=== PATIENT | female | born 1945 | race Caucasian/White ===

== ENCOUNTER 2016-10-24 13:59 | Observation (INO) ==
--- NOTE | 2016-10-24 17:25 | Emergency Department Note ---
Disposition Clinical Impression: Transient cerebral ischemia Disposition: Admitted As Inpatient Referrals: Vickey Goodman Jr, MD [Primary Care Provider] - Forms: ED Satisfaction Letter General Adult HPI - General Chief complaint: ED Dizziness Stated complaint: Dizzy/numbness/nausea Time Seen by Provider: 10/24/16 17:24 Source: patient Limitations: no limitations - History of Present Illness HPI Narrative: 71-year-old female reports to the emergency department with family members. There is concern for recurrent arm numbness or weakness. She also had dysarthria on Sunday. The patient has no history of CVA. She has had a history of hypertension. The patient denies any syncope or fall. There is no history of confusion. She has been somewhat anxious. There is no history of depression or suicidality or homicidality. The patient denies any fevers chest pain shortness of breath or cough no abdominal pain vomiting or diarrhea and no back pain or headache. No neck stiffness rash or fever. There is no history of leg swelling or pain, no coughing up blood. No bleeding, the patient has no history of anticoagulation therapy. The patient usually takes care of herself and lives alone, she is here with 2 younger relatives who are concerned about a possible stroke. Per reports they called their primary care physician's office and they were concerned as well so they had the patient come to the ED. The patient denies any weakness or numbness in the arms or legs at this time. There is no history of karen dysarthria or confusion. The patient also describes some dizziness and nausea. She does not describe head motion related symptomatology. No history of bowel or bladder problems or back pain. There is no history of aneurysm or coronary disease dysrhythmia PE DVT or cancer. Pain Scale: 0 - Related Data Home Medications Medication Instructions Recorded Confirmed Ascorbate Calcium [Vitamin C] 500 mg PO DAILY 10/24/16 10/24/16 Calcium Carbonate [Calcium] 500 mg PO DAILY 10/24/16 10/24/16 Glucosamn/[place]n/C/Mn/[place] 1 tab PO DAILY 10/24/16 10/24/16 [Cvs Glucosamine Chondroitin Tb] [place] [[place] Little] 500 mg PO DAILY 10/24/16 10/24/16 Multivitamin [Multi-Day Vitamins] 1 tab PO DAILY 10/24/16 10/24/16 Vit C/E/Zn/Coppr/Lutein/Zeaxan 1 cap PO DAILY 10/24/16 10/24/16 [Preservision Areds 2 Softgel] Allergies Allergy/AdvReac Type Severity Reaction Status Date / Time No Known Allergies Allergy Verified 10/24/16 14:34 All systems ED: reviewed and negative except as stated. Past Medical History - Past Medical History Medical history: Reports: no medical history Psychiatric history: Reports: no psych history - Social History Smoking Status: Never smoker Smokeless Tobacco Status: No Alcohol use: Reports: none Drug use: Reports: none Physical Exam - General Limitations: no limitations General appearance: alert, in no apparent distress - Head Head exam: atraumatic, normocephalic, normal inspection - Eye Eye exam: Present: normal appearance, PERRL, EOMI - ENT ENT exam: normal exam, normal oropharynx, mucous membranes moist, TM's normal bilaterally, normal external ear exam - Neck Neck exam: Present: normal inspection, full ROM, trachea midline - Chest Chest inspection: Present: symmetric chest wall rise. Absent: tenderness - Respiratory Respiratory exam: Present: normal lung sounds bilaterally. Absent: respiratory distress - Cardiovascular Cardiovascular exam: Present: regular rate, normal rhythm, normal heart sounds - Abdominal Exam Abdominal exam: Present: soft, Non-Tender. Absent: tenderness, distention, guarding, rebound, rigidity, pulsatile mass - Extremities Exam Extremities exam: Present: normal inspection, full ROM, normal capillary refill. Absent: tenderness, pedal edema, joint swelling, calf tenderness - Expanded Lower Extremity Exam Neurovascular/Tendon exam: Absent: motor deficit, sensory deficit, tendon deficit - Back Exam Back exam: Present: normal inspection, full ROM. Absent: tenderness, CVA tenderness (R), CVA tenderness (L), vertebral tenderness - Neurological Exam Neurological exam: Present: alert, oriented X3, CN II-XII intact. Absent: motor sensory deficit - Psychiatric Psychiatric exam: Present: normal affect - Skin Skin exam: Present: warm, dry, intact, normal color. Absent: rash, cyanosis, diaphoresis, erythema, pallor, mottled Course Vital Signs Temperature 97.8 F 10/24/16 14:31 Pulse Rate 69 10/24/16 14:31 Respiratory Rate 18 10/24/16 14:31 Blood Pressure 165/85 10/24/16 14:31 O2 Sat by Pulse Oximetry 97 10/24/16 14:31 Temperature 97.8 F 10/24/16 14:31 Pulse Rate 60 10/24/16 17:15 Respiratory Rate 16 10/24/16 17:15 Blood Pressure 175/83 10/24/16 17:15 O2 Sat by Pulse Oximetry 98 10/24/16 17:15 Oxygen Delivery Oxygen Delivery Room Air Medical Decision Making - MDM Narrative Medical decision making narrative: The patient describes dysarthria on Sunday, some dizziness, she had had recurrent right arm numbness. She seems to have symptoms consistent with recurrent TIA or crescendo TIA. The patient was given aspirin. She appears to be stable at this time. Based on her symptomatology which appears to be recurrent and her frail elderly state, I thought it would be appropriate to consult the hospitalist for possible admission and TIA/CVA workup. - Lab Data Lab results reviewed: Yes I reviewed the patient's lab results. Result diagrams: 10/24/16 18:15 10/24/16 18:15 Lab Results 10/24/16 10/24/16 10/24/16 Range/Units 17:28 17:28 18:15 WBC 7.9 (4.3-11.1) K/mcL RBC 4.47 (3.82-4.97) M/mcL Hgb 13.5 (11.5-15.4) g/dL Hct 40.6 (35.3-44.9) % MCV 90.8 (83.0-100.0) fL MCH 30.2 (28.0-33.3) pg MCHC 33.3 (31.6-35.5) g/dL RDW 12.7 (11.5-14.5) % Plt Count 227 (140-400) K/mcL MPV 8.7 L (9.4-12.4) fL Immature Gran % 0.1 (0-4) % Seg Neutrophils % 50.9 % Lymphocytes % 38.2 % Monocytes % 9.0 % Eosinophils % 1.4 % Basophils % 0.4 % Neutrophils # 4.0 (1.6-8.9) K/mcL Lymphocytes # 3.0 (0.6-4.6) K/mcL Monocytes # 0.7 (0.0-1.3) K/mcL Eosinophils # 0.1 (0.0-0.6) K/mcL Basophils # 0.0 (0.0-0.2) K/mcL PT (9.4-12.1) Seconds INR APTT (26.0-36.0) Seconds Sodium (136-145) mEq/L Potassium (3.5-4.5) mEq/L Chloride (98-109) mEq/L Carbon Dioxide (19-29) mEq/L BUN (7-20) mg/dL Creatinine (0.57-1.11) mg/dL Est GFR ( Amer) (> 60) Est GFR (Non-Af Amer) (> 60) BUN/Creatinine Ratio (6-26) Glucose (70-99) mg/dL Calculated Osmolality (280-300) Calcium (8.6-10.8) mg/dL Total Bilirubin (0.2-1.2) mg/dL Direct Bilirubin (0.0-0.5) mg/dL Indirect Bilirubin (0.0-1.2) mg/dL AST (5-34) Units/L ALT (0-55) Units/L Alkaline Phosphatase (38-126) Units/L Ammonia (18-72) mcmol/L Troponin I (0-0.03) ng/mL Serum Total Protein (6.0-8.3) g/dL Albumin (3.5-5.0) g/dL Globulin (2.4-3.5) g/dL Albumin/Globulin Ratio (1.1-2.2) Urine Color Yellow (Yellow) Urine Clarity Clear (Clear) Urine pH 7.0 (5.0-8.0) pH Units Ur Specific Matthews 1.005 L (1.010-1.025) Urine Protein Negative (Neg-Trace) mg/dL Urine Glucose (UA) Normal (Normal) mg/dL Urine Ketones Negative (Negative) mg/dL Urine Blood Negative (Negative) Urine Nitrite Negative (Negative) Urine Bilirubin Negative (Negative) Urine Urobilinogen Normal (Normal) mg/dL Ur Leukocyte Esterase Moderate H (Negative) Urine Microscopic RBC 0-3 (0-3) per hpf Urine Microscopic WBC 5-15 H (0-3) per hpf Ur Squamous Epith Cells Moderate H (None-Few) per lpf Urine Bacteria None Seen (None-Few) per hpf Hyaline Casts None Seen (None-Few) per lpf Ur Culture Indicated? YES A (NO) Salicylates (15-30) mg/dL Urine Opiates Screen Negative (Bairiq=703) ng/mL Acetaminophen (10-30) mcg/mL Ur Barbiturates Screen Negative (Vbqfvn=284) ng/mL Ur Phencyclidine Scrn Negative (Cutoff=25) ng/mL Ur Amphetamines Screen Negative (Yynmmb=6718) ng/mL U Benzodiazepines Scrn Negative (Ptvhpp=438) ng/mL Urine Cocaine Screen Negative (Cutoff= 300) ng/mL U Marijuana (THC) Screen Negative (Cutoff = 50) ng/mL 10/24/16 10/24/16 10/24/16 Range/Units 18:15 18:15 18:15 WBC (4.3-11.1) K/mcL RBC (3.82-4.97) M/mcL Hgb (11.5-15.4) g/dL Hct (35.3-44.9) % MCV (83.0-100.0) fL MCH (28.0-33.3) pg MCHC (31.6-35.5) g/dL RDW (11.5-14.5) % Plt Count (140-400) K/mcL MPV (9.4-12.4) fL Immature Gran % (0-4) % Seg Neutrophils % % Lymphocytes % % Monocytes % % Eosinophils % % Basophils % % Neutrophils # (1.6-8.9) K/mcL Lymphocytes # (0.6-4.6) K/mcL Monocytes # (0.0-1.3) K/mcL Eosinophils # (0.0-0.6) K/mcL Basophils # (0.0-0.2) K/mcL PT 11.1 (9.4-12.1) Seconds INR 1.0 APTT (26.0-36.0) Seconds Sodium 139 (136-145) mEq/L Potassium 3.6 (3.5-4.5) mEq/L Chloride 106 (98-109) mEq/L Carbon Dioxide 24 (19-29) mEq/L BUN 10 (7-20) mg/dL Creatinine 0.81 (0.57-1.11) mg/dL Est GFR ( Amer) > 60 (> 60) Est GFR (Non-Af Amer) > 60 (> 60) BUN/Creatinine Ratio 12 (6-26) Glucose 97 (70-99) mg/dL Calculated Osmolality 287 (280-300) Calcium 8.9 (8.6-10.8) mg/dL Total Bilirubin (0.2-1.2) mg/dL Direct Bilirubin (0.0-0.5) mg/dL Indirect Bilirubin (0.0-1.2) mg/dL AST (5-34) Units/L ALT (0-55) Units/L Alkaline Phosphatase (38-126) Units/L Ammonia (18-72) mcmol/L Troponin I 0.01 (0-0.03) ng/mL Serum Total Protein (6.0-8.3) g/dL Albumin (3.5-5.0) g/dL Globulin (2.4-3.5) g/dL Albumin/Globulin Ratio (1.1-2.2) Urine Color (Yellow) Urine Clarity (Clear) Urine pH (5.0-8.0) pH Units Ur Specific Matthews (1.010-1.025) Urine Protein (Neg-Trace) mg/dL Urine Glucose (UA) (Normal) mg/dL Urine Ketones (Negative) mg/dL Urine Blood (Negative) Urine Nitrite (Negative) Urine Bilirubin (Negative) Urine Urobilinogen (Normal) mg/dL Ur Leukocyte Esterase (Negative) Urine Microscopic RBC (0-3) per hpf Urine Microscopic WBC (0-3) per hpf Ur Squamous Epith Cells (None-Few) per lpf Urine Bacteria (None-Few) per hpf Hyaline Casts (None-Few) per lpf Ur Culture Indicated? (NO) Salicylates (15-30) mg/dL Urine Opiates Screen (Xaywxr=033) ng/mL Acetaminophen (10-30) mcg/mL Ur Barbiturates Screen (Maylgz=589) ng/mL Ur Phencyclidine Scrn (Cutoff=25) ng/mL Ur Amphetamines Screen (Xbadcv=4832) ng/mL U Benzodiazepines Scrn (Vazltd=632) ng/mL Urine Cocaine Screen (Cutoff= 300) ng/mL U Marijuana (THC) Screen (Cutoff = 50) ng/mL 10/24/16 10/24/16 10/24/16 Range/Units 18:15 18:15 18:15 WBC (4.3-11.1) K/mcL RBC (3.82-4.97) M/mcL Hgb (11.5-15.4) g/dL Hct (35.3-44.9) % MCV (83.0-100.0) fL MCH (28.0-33.3) pg MCHC (31.6-35.5) g/dL RDW (11.5-14.5) % Plt Count (140-400) K/mcL MPV (9.4-12.4) fL Immature Gran % (0-4) % Seg Neutrophils % % Lymphocytes % % Monocytes % % Eosinophils % % Basophils % % Neutrophils # (1.6-8.9) K/mcL Lymphocytes # (0.6-4.6) K/mcL Monocytes # (0.0-1.3) K/mcL Eosinophils # (0.0-0.6) K/mcL Basophils # (0.0-0.2) K/mcL PT (9.4-12.1) Seconds INR APTT 25.8 L (26.0-36.0) Seconds Sodium (136-145) mEq/L Potassium (3.5-4.5) mEq/L Chloride (98-109) mEq/L Carbon Dioxide (19-29) mEq/L BUN (7-20) mg/dL Creatinine (0.57-1.11) mg/dL Est GFR ( Amer) (> 60) Est GFR (Non-Af Amer) (> 60) BUN/Creatinine Ratio (6-26) Glucose (70-99) mg/dL Calculated Osmolality (280-300) Calcium (8.6-10.8) mg/dL Total Bilirubin 0.8 (0.2-1.2) mg/dL Direct Bilirubin 0.3 (0.0-0.5) mg/dL Indirect Bilirubin 0.5 (0.0-1.2) mg/dL AST 21 (5-34) Units/L ALT 18 (0-55) Units/L Alkaline Phosphatase 99 (38-126) Units/L Ammonia 10 L (18-72) mcmol/L Troponin I (0-0.03) ng/mL Serum Total Protein 7.7 (6.0-8.3) g/dL Albumin 3.5 (3.5-5.0) g/dL Globulin 4.2 H (2.4-3.5) g/dL Albumin/Globulin Ratio 0.8 L (1.1-2.2) Urine Color (Yellow) Urine Clarity (Clear) Urine pH (5.0-8.0) pH Units Ur Specific Matthews (1.010-1.025) Urine Protein (Neg-Trace) mg/dL Urine Glucose (UA) (Normal) mg/dL Urine Ketones (Negative) mg/dL Urine Blood (Negative) Urine Nitrite (Negative) Urine Bilirubin (Negative) Urine Urobilinogen (Normal) mg/dL Ur Leukocyte Esterase (Negative) Urine Microscopic RBC (0-3) per hpf Urine Microscopic WBC (0-3) per hpf Ur Squamous Epith Cells (None-Few) per lpf Urine Bacteria (None-Few) per hpf Hyaline Casts (None-Few) per lpf Ur Culture Indicated? (NO) Salicylates (15-30) mg/dL Urine Opiates Screen (Mqdlkc=591) ng/mL Acetaminophen (10-30) mcg/mL Ur Barbiturates Screen (Zknubt=308) ng/mL Ur Phencyclidine Scrn (Cutoff=25) ng/mL Ur Amphetamines Screen (Cfiayz=7965) ng/mL U Benzodiazepines Scrn (Kxqxjo=936) ng/mL Urine Cocaine Screen (Cutoff= 300) ng/mL U Marijuana (THC) Screen (Cutoff = 50) ng/mL 10/24/16 Range/Units 18:15 WBC (4.3-11.1) K/mcL RBC (3.82-4.97) M/mcL Hgb (11.5-15.4) g/dL Hct (35.3-44.9) % MCV (83.0-100.0) fL MCH (28.0-33.3) pg MCHC (31.6-35.5) g/dL RDW (11.5-14.5) % Plt Count (140-400) K/mcL MPV (9.4-12.4) fL Immature Gran % (0-4) % Seg Neutrophils % % Lymphocytes % % Monocytes % % Eosinophils % % Basophils % % Neutrophils # (1.6-8.9) K/mcL Lymphocytes # (0.6-4.6) K/mcL Monocytes # (0.0-1.3) K/mcL Eosinophils # (0.0-0.6) K/mcL Basophils # (0.0-0.2) K/mcL PT (9.4-12.1) Seconds INR APTT (26.0-36.0) Seconds Sodium (136-145) mEq/L Potassium (3.5-4.5) mEq/L Chloride (98-109) mEq/L Carbon Dioxide (19-29) mEq/L BUN (7-20) mg/dL Creatinine (0.57-1.11) mg/dL Est GFR ( Amer) (> 60) Est GFR (Non-Af Amer) (> 60) BUN/Creatinine Ratio (6-26) Glucose (70-99) mg/dL Calculated Osmolality (280-300) Calcium (8.6-10.8) mg/dL Total Bilirubin (0.2-1.2) mg/dL Direct Bilirubin (0.0-0.5) mg/dL Indirect Bilirubin (0.0-1.2) mg/dL AST (5-34) Units/L ALT (0-55) Units/L Alkaline Phosphatase (38-126) Units/L Ammonia (18-72) mcmol/L Troponin I (0-0.03) ng/mL Serum Total Protein (6.0-8.3) g/dL Albumin (3.5-5.0) g/dL Globulin (2.4-3.5) g/dL Albumin/Globulin Ratio (1.1-2.2) Urine Color (Yellow) Urine Clarity (Clear) Urine pH (5.0-8.0) pH Units Ur Specific Matthews (1.010-1.025) Urine Protein (Neg-Trace) mg/dL Urine Glucose (UA) (Normal) mg/dL Urine Ketones (Negative) mg/dL Urine Blood (Negative) Urine Nitrite (Negative) Urine Bilirubin (Negative) Urine Urobilinogen (Normal) mg/dL Ur Leukocyte Esterase (Negative) Urine Microscopic RBC (0-3) per hpf Urine Microscopic WBC (0-3) per hpf Ur Squamous Epith Cells (None-Few) per lpf Urine Bacteria (None-Few) per hpf Hyaline Casts (None-Few) per lpf Ur Culture Indicated? (NO) Salicylates < 5.0 L (15-30) mg/dL Urine Opiates Screen (Fbklnu=544) ng/mL Acetaminophen < 1.0 L (10-30) mcg/mL Ur Barbiturates Screen (Qzquec=538) ng/mL Ur Phencyclidine Scrn (Cutoff=25) ng/mL Ur Amphetamines Screen (Hoqfru=0679) ng/mL U Benzodiazepines Scrn (Hagaaf=351) ng/mL Urine Cocaine Screen (Cutoff= 300) ng/mL U Marijuana (THC) Screen (Cutoff = 50) ng/mL - Radiology Data Radiology results reviewed: Yes I reviewed the patient's radiology results.
[2016-10-24 17:45] LABS: Bilirubin,Urine Negative (Negative); Blood,Urine Negative (Negative); Clarity,Urine Clear (Clear); Color,Urine Yellow (Yellow); Glucose,Urine (UA) Normal (Normal); Ketones,Urine Negative (Negative); Leukocyte Esterase,Urine Moderate (Negative); Nitrite,Urine Negative (Negative); Protein,Urine Negative (Neg-Trace); Specific Gravity,Urine 1.005 (1.010-1.025); Urobilinogen,Urine Normal (Normal)
[2016-10-24 17:48] LABS: Bacteria,Urine None Seen per hpf (None-Few); Hyaline Casts,Urine None Seen per lpf (None-Few); RBC,Urine 0-3 per hpf (0-3); Squamous Epithelial Cell,Urine Moderate per lpf (None-Few)
[2016-10-24 17:51] LABS: Amphetamine Screen,Urine Negative ng/mL (Cutoff=1000); Barbiturate Screen,Urine Negative ng/mL (Cutoff=200); Benzodiazepines Screen,Urine Negative ng/mL (Cutoff=200); Cannabinoid Screen,Urine Negative ng/mL (Cutoff = 50); Cocaine Screen,Urine Negative ng/mL (Cutoff= 300); Opiate Screen,Urine Negative ng/mL (Cutoff=300); Phencyclidine Screen,Urine Negative ng/mL (Cutoff=25)
[2016-10-24 18:24] LABS: Basophils % 0.4 %; Eosinophils # 0.1 K/mcL (0.0-0.6); Eosinophils % 1.4 %; Hematocrit 40.6 % (35.3-44.9); Hemoglobin 13.5 g/dL (11.5-15.4); Immature Granulocytes % 0.1 % (0-4); Lymphocytes % 38.2 %; Mean Corpuscular HGB Conc 33.3 g/dL (31.6-35.5); Mean Corpuscular Hemoglobin 30.2 pg (28.0-33.3); Mean Corpuscular Volume 90.8 fL (83.0-100.0); Mean Platelet Volume 8.7 fL (9.4-12.4); Monocytes # 0.7 K/mcL (0.0-1.3); Platelet Count 227 K/mcL (140-400); Red Blood Count 4.47 M/mcL (3.82-4.97); Red Cell Distribution Width 12.7 % (11.5-14.5); Segmented Neutrophils % 50.9 %
[2016-10-24 18:32] LABS: Prothrombin Time 11.1 Seconds (9.4-12.1)
[2016-10-24 18:35] LABS: BUN/Creatinine Ratio 12 (6-26); Blood Urea Nitrogen 10 mg/dL (7-20); Calcium 8.9 mg/dL (8.6-10.8); Carbon Dioxide 24 mEq/L (19-29); Chloride 106 mEq/L (98-109); Glucose 97 mg/dL (70-99); Osmolality,Calculated 287 (280-300); Potassium 3.6 mEq/L (3.5-4.5); Sodium 139 mEq/L (136-145); eGFR For African Americans > 60 (> 60); eGFR For Non-African Americans > 60 (> 60)
[2016-10-24 18:37] LABS: Acetaminophen < 1.0 mcg/mL (10-30); Albumin 3.5 g/dL (3.5-5.0); Albumin/Globulin Ratio 0.8 (1.1-2.2); Bilirubin,Direct 0.3 mg/dL (0.0-0.5); Bilirubin,Indirect 0.5 mg/dL (0.0-1.2); Bilirubin,Total 0.8 mg/dL (0.2-1.2); Globulin 4.2 g/dL (2.4-3.5); Salicylate < 5.0 mg/dL (15-30); Total Protein 7.7 g/dL (6.0-8.3)
[2016-10-24] MEDS ORDERED: Aspirin 325 MG TABLET PO ONE (19:20)
--- NOTE | 2016-10-24 20:59 | Internal Med History&Physical ---
<BrodyChristine Irish Renetta - Last Filed: 10/25/16 06:20> Date of Encounter: 10/25/16 Time of Encounter: 20:30 Assessment and Plan (1) Transient cerebral ischemia Status: Acute CT head without contrast demonstrates no acute intracranial hemorrhage, mass effect, midline shift, hydrochephalus TTE with enhancement pending Bilateral carotid duplex US pending Will continue with neurologic exams q 4 hours Clinically, patient does not appear to have neurologic deficit Qualifiers: Transient cerebral ischemia type: unspecified Qualified Code(s): G45.9 - Transient cerebral ischemic attack, unspecified (2) Hypertension Status: Acute BP appears to be reactive with baseline BP of 125/98 trending to 175/83 Patient not currently being treated for HTN We will continue to monitor Qualifiers: Hypertension type: unspecified secondary hypertension Qualified Code(s): I15.9 - Secondary hypertension, unspecified; I15 - Secondary hypertension (3) Abnormal EKG Status: Acute EKG with evidence of ischemia Decreased voltage in inferior and precordial leads Normal stress test at [facility] December,, record request pending Troponin not elevated: 0.01, 0.02, 0.01 (4) UTI (urinary tract infection) Status: Acute WBC 7.9 Urine culture pending Rocephin 2g IVB Qualifiers: Urinary tract infection type: acute cystitis Hematuria presence: without hematuria Qualified Code(s): N30.00 - Acute cystitis without hematuria (5) Depression Status: Acute Qualifiers: Qualified Code(s): F32.9 - Major depressive disorder, single episode, unspecified Internal Medicine - H&P: HPI Chief complaint: Dizziness, Dysarthria, Numbness, Visual disturbance Admitted From: Emergency Dept Plans for Post Hospital Care: Home History of present illness: Ms. Crane is a 71 year old female who presented to ED with episode of dizziness , nausea, visual disturbance, and numbness to right arm. Admits to multiple such episodes in the past. These episodes wax and wane. However, the current episode did not relent, which prompted Ms. Crane's current visit. Patient states that she had an episode of dysarthria 3 days ago. She was talking to her cousing on the phone at the time. When she spoke, the words "didn't sound like words". She states that the episode cleared within 30-45 minutes. She ate a cream horn and drank a coffee, but does not know if eating improved her symptoms. Two days ago, she had and episode in which she had "sparkles" in her vision. This was described as little clear dots that occurred in all visual carroll. The sparkles lasted 20-30 minutes. There was associated dizziness. There was no associated headache or problems ambulating. Today, Ms. Crane felt dizzy, nauseated and felt "shaky". She states that there was an area of numbness on the radial extensor Right arm that has since resolved. She denies blurry vision, eye pain. Denies tingling to hands and feet. Denies current numbness and/or weakness. Denies pain to shoulders, neck, back. Past Med Surg Social Fam HX - Past Medical History Medical history: no medical history, arthritis, hypertension (Controlled), other (Cataracts, ) Psychiatric history: no psych history, depression - Past Surgical History Surgical History: cataract - Social History Smoking Status: Never smoker Smokeless Tobacco Status: No Alcohol use: none Drug use: none - Family History Father Hx Family Cardiac Disorders: Yes Mother Hx Family Cardiac Disorders: Yes (mi) Internal Medicine - H&P: Meds Ascorbate Calcium [Vitamin C] 500 mg PO DAILY 10/24/16 [History] Calcium Carbonate [Calcium] 500 mg PO DAILY 10/24/16 [History] Glucosamn/Condroitn/C/Mn/Anderson [Cvs Glucosamine Chondroitin Tb] 1 tab PO DAILY 10/24/16 [History] [place] [[place] Little] 500 mg PO DAILY 10/24/16 [History] Multivitamin [Multi-Day Vitamins] 1 tab PO DAILY 10/24/16 [History] Vit C/E/Zn/Coppr/Lutein/Zeaxan [Preservision Areds 2 Softgel] 1 cap PO DAILY [History] Aspirin 81 mg PO DAILY #30 tab.chew 10/25/16 [Rx] Atorvastatin [Lipitor] 40 mg PO HS #30 tablet 10/25/16 [Rx] Allergies No Known Allergies Allergy (Verified 10/24/16 14:34) All Systems PM: A 10-system review of systems was performed and is negative for pertinent findings except as documented above in the HPI. - Constitutional Constitutional: other (inconsistent sleep, inconsistent diet), no chills, no fever(s), no night sweats, no weakness, no weight gain, no weight loss - EENT Eyes: change in vision, spots in vision, no blurry vision, no diplopia, no pain Nose, mouth and throat: odynophagia, no dysphagia - Cardiovascular Cardiovascular ROS IM: no chest pain, no dyspnea, no edema, no palpitations - Respiratory Respiratory: other (denies recent respiratory infections), no cough, no dyspnea - Gastrointestinal Gastrointestinal: nausea, no abdominal pain, no constipation, no diarrhea, no hematochezia, no melena, no vomiting - Genitourinary Genitourinary: prolapse symptoms (uses pessary), urinary incontinence (for last 2 months), no dysuria, no flank pain, no hematuria Menstruation: post menopausal - Musculoskeletal Musculoskeletal ROS IM: arthralgias (Right and left OA, Cortisone injection to Right knee 6 days ago), no myalgias - Neurological Neurological ROS: abnormal speech, dizziness, numbness (R arm with small "strip " of numbness), no headache(s), no weakness - Psychiatric Psychiatric: depression - Constitutional Vitals: Temp Pulse Resp BP Pulse Ox 97.8 F 64 16 162/89 94 L 10/24/16 14:31 10/24/16 20:00 10/24/16 20:00 10/24/16 20:00 10/24/16 20:00 General appearance: Present: A&O X 0, cooperative, pleasant, no acute distress, answers questions appropriately - Head Head exam: Present: atraumatic, normal inspection, normocephalic - Eye Eye exam: Present: EOMI, sclera anicteric Pupils: Present: PERRL - Neck Neck exam general surgery: Present: full ROM, normal inspection, supple, trachea midline. Absent: nuchal rigidity, thyromegaly - Respiratory Respiratory exam: Present: CTAB. Absent: rhonchi, wheezes - Cardiovascular Cardiovascular exam: Present: RRR, +S1, +S2 - GI/Abdominal GI/Abdominal exam: Present: normal bowel sounds, soft. Absent: distended, tenderness - Extremities Exam Extremities exam: Present: full ROM, warm - Neurological Exam Neurological exam: Present: alert, CN II-XII intact, normal gait, oriented X3, reflexes normal, strengths equal and symetr throughout - Psychiatric Psychiatric exam: Present: depressed Internal Med - H&P Results - Labs CBC & Chem 7: 10/24/16 22:37 10/24/16 22:37 - EKG Data Interpretation IM: ischemic changes - Attending Attestation I examined this patient and my medical decision-making was reviewed with the CONDUCTOR AND ENGINEER/PA/Advanced Practice Nurse/Resident Physician. I agree with the documented findings, disposition and treatment plan as described except to the extent set forth below. - VTE Documentation of Mechanical Device: Intermittent pneumatic compression device <Freddie Dean - Last Filed: 12/20/16 07:49> Date of Encounter: 10/25/16 Internal Medicine - H&P: HPI History of present illness: Ms. Crane is a 71 year old female admitted to [facility] in the emergency department when she presented with complaints of acute onset of dizziness with speech disturbance of speech and vision and numbness of right arm. She describes this as a stereotypical event that has occurred in her past several times with complete resolution within minutes to days of onset. 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 The patient was visited and interviewed and examined. I examined this patient and my medical decision-making was reviewed with the Resident Physician, Dr. Christine Skinner. For this encounter, I have reviewed the documentation, treatment plan, and medical decision making. I agree with the documented findings, disposition and treatment plan as described except to the extent set forth below. Cumulative laboratory and radiographic data base was reviewed, considered and discussed. Given the patient's presenting concerns, past medical history, clinical findings and symptoms, she is admitted at this time. Further evaluation and disposition. All Systems PM: A 10-system review of systems was performed and is negative for pertinent findings except as documented above in the HPI. - Constitutional Vitals: Temp Pulse Resp BP Pulse Ox 97.7 F 60 12 131/69 97 10/25/16 03:42 10/25/16 03:42 10/25/16 03:42 10/25/16 03:42 10/25/16 03:42 Internal Med - H&P Results - Labs CBC & Chem 7: 10/24/16 22:37 10/24/16 22:37 Labs: Short CBC 10/24/16 Range/Units 22:37 WBC 7.3 (4.3-11.1) K/mcL Hgb 13.5 (11.5-15.4) g/dL Hct 39.2 (35.3-44.9) % Plt Count 222 (140-400) K/mcL Neutrophils # 3.5 (1.6-8.9) K/mcL BMP 10/24/16 22:37 Sodium 139 Potassium 3.9 Chloride 108 Carbon Dioxide 23 BUN 10 Creatinine 0.80 Glucose 94 Calcium 8.9 Cardiac Enzymes 10/24/16 10/25/16 Range/Units 22:37 04:08 Troponin I 0.02 0.01 (0-0.03) ng/mL - Impressions Vital Signs Temp Pulse Resp BP Pulse Ox 10/25/16 03:42 97.7 F 60 12 131/69 97 10/24/16 22:08 97.9 F 61 16 154/78 96 10/24/16 21:15 15 162/89 10/24/16 20:00 64 16 162/89 94 L 10/24/16 19:30 65 15 167/85 97 10/24/16 19:00 67 16 143/89 96 10/24/16 18:30 72 15 125/98 95 10/24/16 18:00 58 16 142/79 95 10/24/16 17:30 61 16 125/81 94 L 10/24/16 17:26 53 16 152/89 93 L 10/24/16 17:15 60 16 175/83 98 10/24/16 16:34 69 18 165/85 97 10/24/16 14:31 97.8 F 54 15 140/71 94 L Intake and Output 10/24/16 10/24/16 10/25/16 15:59 23:59 07:59 Output Total 400 / 400 Balance -400 / -400 Output: Urine 400 / 400 Other: Weight 63.503 kg 63.503 kg 63.548 kg Patient Weight 10/25/16 23:59 Weight 63.548 kg Short CBC 10/24/16 10/24/16 Range/Units 22:37 18:15 WBC 7.3 7.9 (4.3-11.1) K/mcL Hgb 13.5 13.5 (11.5-15.4) g/dL Hct 39.2 40.6 (35.3-44.9) % Plt Count 222 227 (140-400) K/mcL Neutrophils # 3.5 4.0 (1.6-8.9) K/mcL BMP 10/24/16 10/24/16 Range/Units 22:37 18:15 Sodium 139 139 (136-145) mEq/L Potassium 3.9 3.6 (3.5-4.5) mEq/L Chloride 108 106 (98-109) mEq/L Carbon Dioxide 23 24 (19-29) mEq/L BUN 10 10 (7-20) mg/dL Creatinine 0.80 0.81 (0.57-1.11) mg/dL Glucose 94 97 (70-99) mg/dL Calcium 8.9 8.9 (8.6-10.8) mg/dL Cardiac Enzymes 10/25/16 10/24/16 10/24/16 Range/Units 04:08 22:37 18:15 Troponin I 0.01 0.02 0.01 (0-0.03) ng/mL Liver Function 10/24/16 Range/Units 18:15 Total Bilirubin 0.8 (0.2-1.2) mg/dL Direct Bilirubin 0.3 (0.0-0.5) mg/dL AST 21 (5-34) Units/L ALT 18 (0-55) Units/L Alkaline Phosphatase 99 (38-126) Units/L Albumin 3.5 (3.5-5.0) g/dL Urine 10/24/16 Range/Units 17:28 Urine Color Yellow (Yellow) Urine Clarity Clear (Clear) Urine pH 7.0 (5.0-8.0) pH Units Ur Specific Geary 1.005 L (1.010-1.025) Urine Protein Negative (Neg-Trace) mg/dL Urine Glucose (UA) Normal (Normal) mg/dL Abnormal lab results MPV 8.8 fL (9.4-12.4) L 10/24/16 22:37 ESR 42 mm/hr (0-15) H 10/25/16 04:08 APTT 25.8 Seconds (26.0-36.0) L 10/24/16 18:15 Ammonia 10 mcmol/L (18-72) L 10/24/16 18:15 Globulin 4.2 g/dL (2.4-3.5) H 10/24/16 18:15 Albumin/Globulin Ratio 0.8 (1.1-2.2) L 10/24/16 18:15 LDL Cholesterol, Calc 126 mg/dL (0-99) H 10/25/16 04:08 HDL Cholesterol 38 mg/dL (40-59) L 10/25/16 04:08 Ur Specific Geary 1.005 (1.010-1.025) L 10/24/16 17:28 Ur Leukocyte Esterase Moderate (Negative) H 10/24/16 17:28 Urine Microscopic WBC 5-15 per hpf (0-3) H 10/24/16 17:28 Ur Squamous Epith Cells Moderate per lpf (None-Few) H 10/24/16 17:28 Ur Culture Indicated? YES (NO) A 10/24/16 17:28 Salicylates < 5.0 mg/dL (15-30) L 10/24/16 18:15 Acetaminophen < 1.0 mcg/mL (10-30) L 10/24/16 18:15 Allergies Allergy/AdvReac Type Severity Reaction Status Date / Time No Known Allergies Allergy Verified 10/24/16 14:34 Laboratory Results WBC 7.3 K/mcL (4.3-11.1) 10/24/16 22:37 RBC 4.32 M/mcL (3.82-4.97) 10/24/16 22:37 Hgb 13.5 g/dL (11.5-15.4) 10/24/16 22:37 Hct 39.2 % (35.3-44.9) 10/24/16 22:37 MCV 90.7 fL (83.0-100.0) 10/24/16 22:37 MCH 31.3 pg (28.0-33.3) 10/24/16 22:37 MCHC 34.4 g/dL (31.6-35.5) 10/24/16 22:37 RDW 12.7 % (11.5-14.5) 10/24/16 22:37 Plt Count 222 K/mcL (140-400) 10/24/16 22:37 MPV 8.8 fL (9.4-12.4) L 10/24/16 22:37 Immature Gran % 0.3 % (0-4) 10/24/16 22:37 Seg Neutrophils % 48.3 % 10/24/16 22:37 Lymphocytes % 38.8 % 10/24/16 22:37 Monocytes % 10.3 % 10/24/16 22:37 Eosinophils % 1.8 % 10/24/16 22:37 Basophils % 0.5 % 10/24/16 22:37 Neutrophils # 3.5 K/mcL (1.6-8.9) 10/24/16 22:37 Lymphocytes # 2.8 K/mcL (0.6-4.6) 10/24/16 22:37 Monocytes # 0.8 K/mcL (0.0-1.3) 10/24/16 22:37 Eosinophils # 0.1 K/mcL (0.0-0.6) 10/24/16 22:37 Basophils # 0.0 K/mcL (0.0-0.2) 10/24/16 22:37 ESR 42 mm/hr (0-15) H 10/25/16 04:08 PT 11.1 Seconds (9.4-12.1) 10/24/16 18:15 INR 1.0 10/24/16 18:15 APTT 25.8 Seconds (26.0-36.0) L 10/24/16 18:15 Sodium 139 mEq/L (136-145) 10/24/16 22:37 Potassium 3.9 mEq/L (3.5-4.5) 10/24/16 22:37 Chloride 108 mEq/L (98-109) 10/24/16 22:37 Carbon Dioxide 23 mEq/L (19-29) 10/24/16 22:37 BUN 10 mg/dL (7-20) 10/24/16 22:37 Creatinine 0.80 mg/dL (0.57-1.11) 10/24/16 22:37 Est GFR ( Amer) > 60 (> 60) 10/24/16 22:37 Est GFR (Non-Af Amer) > 60 (> 60) 10/24/16 22:37 BUN/Creatinine Ratio 13 (6-26) 10/24/16 22:37 Glucose 94 mg/dL (70-99) 10/24/16 22:37 Calculated Osmolality 287 (280-300) 10/24/16 22:37 Calcium 8.9 mg/dL (8.6-10.8) 10/24/16 22:37 Phosphorus 3.6 mg/dL (2.3-4.7) 10/25/16 04:08 Magnesium 2.2 mg/dL (1.6-2.6) 10/25/16 04:08 Total Bilirubin 0.8 mg/dL (0.2-1.2) 10/24/16 18:15 Direct Bilirubin 0.3 mg/dL (0.0-0.5) 10/24/16 18:15 Indirect Bilirubin 0.5 mg/dL (0.0-1.2) 10/24/16 18:15 AST 21 Units/L (5-34) 10/24/16 18:15 ALT 18 Units/L (0-55) 10/24/16 18:15 Alkaline Phosphatase 99 Units/L (38-126) 10/24/16 18:15 Ammonia 10 mcmol/L (18-72) L 10/24/16 18:15 Troponin I 0.01 ng/mL (0-0.03) 10/25/16 04:08 C-Reactive Protein 3 mg/L (Less than 5) 10/25/16 04:08 Serum Total Protein 7.7 g/dL (6.0-8.3) 10/24/16 18:15 Albumin 3.5 g/dL (3.5-5.0) 10/24/16 18:15 Globulin 4.2 g/dL (2.4-3.5) H 10/24/16 18:15 Albumin/Globulin Ratio 0.8 (1.1-2.2) L 10/24/16 18:15 Triglycerides 89 mg/dL (< 150) 10/25/16 04:08 Cholesterol 182 mg/dL (< 200) 10/25/16 04:08 LDL Cholesterol, Calc 126 mg/dL (0-99) H 10/25/16 04:08 VLDL Cholesterol, Calc 18 mg/dL (< 31) 10/25/16 04:08 HDL Cholesterol 38 mg/dL (40-59) L 10/25/16 04:08 Cholesterol/HDL Ratio 4.8 (0-4.9) 10/25/16 04:08 Urine Color Yellow (Yellow) 10/24/16 17:28 Urine Clarity Clear (Clear) 10/24/16 17:28 Urine pH 7.0 pH Units (5.0-8.0) 10/24/16 17: Ur Specific Geary 1.005 (1.010-1.025) L 10/24/16 17: Urine Protein Negative mg/dL (Neg-Trace) 10/24/16 17: Urine Glucose (UA) Normal mg/dL (Normal) 10/24/16 17: Urine Ketones Negative mg/dL (Negative) 10/24/16: Urine Blood Negative (Negative) 10/24/16: Urine Nitrite Negative (Negative) 10/24/16 17: Urine Bilirubin Negative (Negative) 10/24/16: Urine Urobilinogen Normal mg/dL (Normal) 10/24/16: Ur Leukocyte Esterase Moderate (Negative) H 10/24/16 17: Urine Microscopic RBC 0-3 per hpf (0-3) 10/24/16 17: Urine Microscopic WBC 5-15 per hpf (0-3) H 10/24/16: Ur Squamous Epith Cells Moderate per lpf (None-Few) H 10/24/16 17: Urine Bacteria None Seen per hpf (None-Few) 10/24/16 17: Hyaline Casts None Seen per lpf (None-Few) 10/24/16: Ur Culture Indicated? YES (NO) A 10/24/16 17: Salicylates < 5.0 mg/dL (15-30) L 10/24/16 18:15 Urine Opiates Screen Negative ng/mL (Vrsdcb=059) 10/24/16 17: Acetaminophen < 1.0 mcg/mL (10-30) L 10/24/16 18:15 Ur Barbiturates Screen Negative ng/mL (Bbfuat=489) 10/24/16 17: Ur Phencyclidine Scrn Negative ng/mL (Cutoff=25) 10/24/16 17: Ur Amphetamines Screen Negative ng/mL (Rxupgx=4509) 10/24/16: U Benzodiazepines Scrn Negative ng/mL (Qenoav=202) 10/24/16 17: Urine Cocaine Screen Negative ng/mL (Cutoff= 300) 10/24/16: U Marijuana (THC) Screen Negative ng/mL (Cutoff = 50) 10/24/16 17:28 Impressions Chest X-Ray 10/24/16 17:25 IMPRESSION: No acute cardiopulmonary disease. D/ / 10/24/2016 18:08:35 Tom Denis MD / antonella Interpreting Provider: Tom Denis MD Head CT 10/24/16 17:25 IMPRESSION: No acute intracranial abnormality. D/ / Pepe Matta MD / Pepe Matta MD Interpreting Provider: Pepe Matta MD - Attending Attestation My signature below is to certify that this patient is under my care and that I, or the Resident Physician working with me, has had a [id number] encounter with this patient. Plan of care has been reviewed and discussed in detail with the patient. Questions addressed. Advanced care directive discussion briefly addressed. Patient does not be clear any healthcare restrictions at this time. Outpatient medications schedules. He, confirmed and facilitated as appropriate. Reconciliation of home treatments including adjustments, substitutions and reintroduction the treatment regimen will address necessary maintenance therapies for chronic pre-existing medical conditions. Hospital course dictated by clinical findings, treatment response and potential consultative interventions. Consultative opinions will be sought as clinical circumstances justify. The patient is at risk for acute clinical decline and morbidity given this presenting chief complaint, advanced age and associated comorbidities. Condition is serious. Prognosis is guarded. CODE STATUS is reported as full.
[2016-10-24] MEDS ORDERED: Naloxone 0.4 MG/ML INJ IVP PRN (21:48)
[2016-10-24] MEDS ORDERED: 0.9 % Sodium Chloride 1,000 ML IVC SCH (22:00)
[2016-10-24] MEDS ORDERED: *HR* Morphine 2 MG/ML SYRINGE IVP PRN (22:24)
[2016-10-24] MEDS ORDERED: Acetaminophen 325 MG TABLET PO PRN (22:24)
[2016-10-24] MEDS ORDERED: Ondansetron ODT 4 MG TAB.RAPDIS SL PRN (22:24)
[2016-10-24] MEDS ORDERED: Ibuprofen 400 MG TABLET PO PRN (22:24)
[2016-10-24] MEDS ORDERED: *HR* HYDROcodone/Acet 5/325 mg TABLET PO PRN (22:24)
[2016-10-24 22:43] LABS: Basophils % 0.5 %; Eosinophils # 0.1 K/mcL (0.0-0.6); Eosinophils % 1.8 %; Hematocrit 39.2 % (35.3-44.9); Hemoglobin 13.5 g/dL (11.5-15.4); Immature Granulocytes % 0.3 % (0-4); Lymphocytes # 2.8 K/mcL (0.6-4.6); Lymphocytes % 38.8 %; Mean Corpuscular HGB Conc 34.4 g/dL (31.6-35.5); Mean Corpuscular Hemoglobin 31.3 pg (28.0-33.3); Mean Corpuscular Volume 90.7 fL (83.0-100.0); Mean Platelet Volume 8.8 fL (9.4-12.4); Monocytes # 0.8 K/mcL (0.0-1.3); Monocytes % 10.3 %; Neutrophils # 3.5 K/mcL (1.6-8.9); Platelet Count 222 K/mcL (140-400); Red Blood Count 4.32 M/mcL (3.82-4.97); Red Cell Distribution Width 12.7 % (11.5-14.5); Segmented Neutrophils % 48.3 %
[2016-10-24 22:56] LABS: Magnesium 2.2 mg/dL (1.6-2.6); Phosphorous 3.1 mg/dL (2.3-4.7)
[2016-10-24 22:57] LABS: BUN/Creatinine Ratio 13 (6-26); Blood Urea Nitrogen 10 mg/dL (7-20); Calcium 8.9 mg/dL (8.6-10.8); Carbon Dioxide 23 mEq/L (19-29); Chloride 108 mEq/L (98-109); Glucose 94 mg/dL (70-99); Osmolality,Calculated 287 (280-300); Potassium 3.9 mEq/L (3.5-4.5); Sodium 139 mEq/L (136-145); eGFR For African Americans > 60 (> 60); eGFR For Non-African Americans > 60 (> 60)
[2016-10-25] MEDS ORDERED: Ondansetron 4 MG/2 ML VIAL IVP PRN (00:17)
[2016-10-25 05:14] LABS: Chol/HDL Ratio 4.8 (0-4.9); Magnesium 2.2 mg/dL (1.6-2.6); Phosphorous 3.6 mg/dL (2.3-4.7)
[2016-10-25] MEDS ORDERED: Famotidine 20 MG/2 ML VIAL IVP SCH (06:00)
[2016-10-25] MEDS ORDERED: Aspirin 81 MG TAB.CHEW PO SCH (09:00)
--- NOTE | 2016-10-25 10:16 | Neurology - Consult Note ---
Date of Encounter: 10/25/16 Time of Encounter: 10:14 Assessment and Plan (1) Transient ischemic attack (TIA) Current Visit: Yes Status: Acute - dysarthria resolved, no focal neuro deficits currently - concern for TIA possible amaurosis fugax given associated history with visual disturbance - TIA workup initiated - CT head without acute intracranial abnormality - rhythm strips are normal sinus without arrhythmia, no history of cardiac disease - ECHO pending - Carotid doppler, preliminary shows nonstenotic bilateral plaque - lipid panel significant for LDL 126 and low HDL 38, recommend continuing Atrovastatin - MR brain ordered to complete TIA workup - 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 Crane is a 71 year old female with history of hypertension and cataracts presented to the ED yesterday for multiple complaints including lightheadedness , right arm weakness, dysarthria, visual disturbances. Patient was admitted from the ED for observation and Neurology consulted for dysarthria and possible TIA. These episodes have been on and off over the past several days. Her right arm weakness has been ongoing over the past several months, history of right wrist fracture a few years ago. Isolated strip of numbness along the radial aspect of her forearm. Denies any weakness in the hands. Patient is right-handed. She is most concerned about her episode of dysarthria that occurred on Sunday afternoon. She was speaking to her cousin on the phone when her words got jumbled. States "the words didn't sound like words when they came out." This was an isolated incident that lasted approximately 30 minutes. Denies any prodromal symptoms such as vision loss, headache, extremity weakness, facial numbness, syncope, chest pain. Her visual disturbance is described as spots, denies vision loss. She recently had cataracts surgery on the right eye 2 weeks ago, which is the affected eye. Denies any history of stroke, TIA, blood clots, arrhythmia, or cardiac disease. Reports had brain aneurysm and 7 years ago. On my examination today 10/25/16 patient is completely asymptomatic. She is able to carry a conversation without difficulty or dysarthria. Alert and oriented to person, place, and time. Denies headache, extremity weakness, paresthesias, nausea, or vomiting. She appears anxious and admits to being depressed. She is retired and lives alone at home without assistance. 7 years ago. Son and daughter are at bedside. She normally likes to read books at home and rarely uses a computer. Past Med Surg Social Fam HX - Past Medical History Medical history: no medical history, arthritis, hypertension (Controlled), other (Cataracts, ) Psychiatric history: no psych history, depression - Past Surgical History Surgical History: cataract - Social History Smoking Status: Never smoker Smokeless Tobacco Status: No Alcohol use: none Drug use: none - Family History Father Hx Family Cardiac Disorders: Yes Mother Hx Family Cardiac Disorders: Yes (mi) Medications and Allergies Ascorbate Calcium [Vitamin C] 500 mg PO DAILY 10/24/16 [History] Calcium Carbonate [Calcium] 500 mg PO DAILY 10/24/16 [History] Glucosamn/Condroitn/C/Mn/[place] [Cvs Glucosamine Chondroitin Tb] 1 tab PO DAILY 10/24/16 [History] [place] [[place] Little] 500 mg PO DAILY 10/24/16 [History] Multivitamin [Multi-Day Vitamins] 1 tab PO DAILY 10/24/16 [History] Vit C/E/Zn/Coppr/Lutein/Zeaxan [Preservision Areds 2 Softgel] 1 cap PO DAILY [History] Allergies No Known Allergies Allergy (Verified 10/24/16 14:34) All Systems: A 10-system review of systems was performed and is negative for pertinent findings except as documented above in the HPI. - Constitutional Constitutional ROS IM: no headache(s) - Nose, Mouth, Throat Nose, mouth and throat: as per HPI - Cardiovascular Cardiovascular ROS IM: lightheadedness, no acrocyanosis, no chest pain, no palpitations - Respiratory Respiratory IM: no cough, no dyspnea - Gastrointestinal Gastrointestinal: as per HPI - Genitourinary Genitourinary ROS: urinary incontinence (pessary) - Musculoskeletal Musculoskeletal ROS IM: numbness, no abnormal gait, no muscle weakness - Neurological Neurological ROS: numbness, no abnormal gait, no confusion, no frequent falls, no headache(s), no loss of vision, no memory loss, no syncope - Psychiatric Psychiatric general PM: anxiety, depression Physical Examination - Vital Signs Vital Signs: Initial Vital Signs Temp Pulse Resp BP Pulse Ox 97.8 F 69 18 165/85 97 10/24/16 14:31 10/24/16 14:31 10/24/16 14:31 10/24/16 14:31 10/24/16 14:31 - Constitutional General appearance: comfortable - Neurologic Sensorimotor examination: intact Detailed motor examination: grossly full strength in all extremities, full strength in all major muscle groups Motor examination - right side: 5/5: deltoids, biceps, triceps, wrist flexion, wrist extension, rn transitional, hip flexors, tibialis Anterior, quadriceps, toe extension (EHL), plantarflexion Motor examination - left side: 5/5: deltoids, biceps, triceps, wrist flexion, wrist extension, hip flexors, rn transitional, quadriceps, tibialis Anterior, toe extension (EHL), plantarflexion Detailed sensory examination: intact, light touch Reflex and gait examination: intact Reflexes: Patella: 2+, Achilles: 2+ Mental Status Examination: awake, alert, oriented to person, oriented to place, oriented to time, follows commands appropriately, answers questions appropriately, no agnosia, no aphasia, no aproxia Cranial nerve examination: PERRL, EOMI, visual carroll intact, sensory to face intact, mastication intact, no facial asymmetry is present, no dysarthria, hearing is intact symmetrically, soft palate elevates bilaterally upon phonation , flexes SCM and trapezius muscles symmetrically with full power, tongue protrudes midline, no atrophy or facial fasiculations present Cerebellar examination: no dysmetria, performs finger to nose and heel to curtis symmetrically without ataxia, no gait ataxia, no difficulty with rapid alternating movements Results - Laboratory Findings CBC and BMP: 10/24/16 22:37 10/24/16 22:37 Abnormal lab findings: Abnormal lab results MPV 8.8 fL (9.4-12.4) L 10/24/16 22:37 ESR 42 mm/hr (0-15) H 10/25/16 04:08 APTT 25.8 Seconds (26.0-36.0) L 10/24/16 18:15 Ammonia 10 mcmol/L (18-72) L 10/24/16 18:15 Globulin 4.2 g/dL (2.4-3.5) H 10/24/16 18:15 Albumin/Globulin Ratio 0.8 (1.1-2.2) L 10/24/16 18:15 LDL Cholesterol, Calc 126 mg/dL (0-99) H 10/25/16 04:08 HDL Cholesterol 38 mg/dL (40-59) L 10/25/16 04:08 Ur Specific [place] 1.005 (1.010-1.025) L 10/24/16 17:28 Ur Leukocyte Esterase Moderate (Negative) H 10/24/16 17:28 Urine Microscopic WBC 5-15 per hpf (0-3) H 10/24/16 17:28 Ur Squamous Epith Cells Moderate per lpf (None-Few) H 10/24/16 17:28 Ur Culture Indicated? YES (NO) A 10/24/16 17:28 Salicylates < 5.0 mg/dL (15-30) L 10/24/16 18:15 Acetaminophen < 1.0 mcg/mL (10-30) L 10/24/16 18:15 - Diagnostic Findings Chest x-ray: report reviewed, image reviewed Additional findings: CT head images and reported reviewed, no acute intracranial abnormality Consult Discharge Plan - Plan Referrals: Vickey Goodman Jr, MD [Primary Care Provider] -
--- NOTE | 2016-10-25 11:53 | ECHO - Doppler Report ---
Echo with Saline Contrast Name: Mark Crane Date of Study: 10/25/2016 Date: 1945 Ht: 61.0 in Medical Record#: [id number] Age: 71 Wt: 140.0 lb Gender: Female BSA: 1.62 Order #: [id number] Location: [facility] Room #: 3B21 Reading Physician: Elvia Davenport DO Authorization Manager: Cherry Morales RDCS, RVT Ordering Physician: Christine Skinner DO Primary Physician: Vickey Goodman MD Indications: Transient Neurologic Symptoms Impressions: LVEF 55%. Normal left ventricular size and systolic function. There is evidence of mild diastolic dysfunction of the left ventricle. Normal right ventricular size and function. Mild aortic regurgitation. No pulmonary hypertension. There is no evidence of a PFO with agitated saline contrast. Left Ventricular Wall Motion: Rest Echo Findings All wall segments showed normal motion. Findings: Study Quality * Technically adequate exam. ECG Findings * Sinus bradycardia. Left Ventricle * LVEF 55%. * Basal sigmoid septum. * Mild left ventricular diastolic dysfunction. Aortic Valve * Mild aortic regurgitation. * Aortic valve not well visualized. * No aortic stenosis. Mitral Valve * Mildly calcified mitral valve leaflets. * No mitral stenosis. * Trace mitral regurgitation. Tricuspid Valve * Tricuspid valve not well visualized. * Trace tricuspid regurgitation. * Estimated RA pressure is 3 mmHg. * Estimated RVSP is 23 mmHg. * No pulmonary hypertension. Pulmonic Valve * Pulmonic valve is not well visualized. * No pulmonic stenosis. * No pulmonic regurgitation. Pulmonary Artery * Pulmonary artery not well visualized. Right Ventricle * Normal right ventricular structure and function. Left Atrium * Normal left atrial size. Right Atrium * Normal right atrial size. Interatrial Septum * No evidence of PFO with agitated saline contrast. IVC * Normal IVC dimensions and inspiratory collapse. Pericardium * There is no pericardial effusion present. Aorta * Normally sized aortic root. History Hypertension Family History of CAD Contrast: Agitated saline 20 ml. Measurements: BP: 130/ 72 2D Normal Values IVSd: .90 cm 0.6 - 1.0 cm LVIDd: 3.50 cm 3.7 - 5.6 cm LVPWd: .90 cm 0.6 - 1.1 cm LVIDs: 2.00 cm 1.5 - 3.6 cm AO: 2.60 cm < 4.0 cm LA: 3.90 cm 2.0 - 4.0cm %FS: 42.90 cm >25 % LA volume: 60 Mitral Valve Peak E:.69 m/sec Peak A:.80 m/sec E/A Ratio:0.9 Peak E' Lat [place]:7.51 cm/s Peak E' Med [place]:5.26 cm/s E/E' Lat Ratio:9.1 E/E' Med Ratio:13 Aortic Valve AI pressure Half-time: 810.00 msec Tricuspid Valve TV Regurg Peak Grad: 20.00mmHg TV Regurg Peak [place]: 2.26m/sec Updated by Elvia Davenport on 10/25/2016 11:46:32 AM electronically signed on 10/25/2016 11:47:09 AM with status of Final Wall Motion [place]: 1=Normal, 2=Hypokinesis, 3=Akinesis, 4=Dyskinesis, 5=Aneurysmal, 6=Hyperkinetic, X=Not Visualized (Blank)=Missing
[2016-10-25 11:55] VITALS: BP 158/78
--- NOTE | 2016-10-25 13:25 | Electrocardiograph Report ---
[facility] Test Date: 2016-10-24 Pat Name: Mark Crane Department: 103 Room: 3B21 Gender: F Consumer Marketing Analyst: FRANSISCO : 1945 Requested By: Robson Almonte Order Number: [id number] Reading MD: Gene Roa MD Measurements Intervals [place] Rate: 60 P: 26 NC: 195 QRS: -4 QRSD: 84 T: 4 QT: 414 QTc: 414 Interpretive Statements SINUS RHYTHM WITH SINUS ARRHYTHMIA INFERIOR MYOCARDIAL INFARCTION, PROBABLY OLD Electronically Signed On 10-25-16 13:22:53 EST by Gene Roa MD
--- NOTE | 2016-10-25 15:38 | Discharge Summary ---
Date of Encounter: 10/25/16 Time of Encounter: 15:36 - Discharge Medications Prescriptions: Aspirin 81 mg PO DAILY #30 tab.chew Atorvastatin [Lipitor] 40 mg PO HS #30 tablet Home Medications: Ascorbate Calcium [Vitamin C] 500 mg PO DAILY 10/24/16 [History] Calcium Carbonate [Calcium] 500 mg PO DAILY 10/24/16 [History] Glucosamn/Condroitn/C/Mn/[place] [[facility]vs Glucosamine Chondroitin Tb] 1 tab PO DAILY 10/24/16 [History] Accident [Accident Little] 500 mg PO DAILY 10/24/16 [History] Multivitamin [Multi-Day Vitamins] 1 tab PO DAILY 10/24/16 [History] Vit C/E/Zn/Coppr/Lutein/Zeaxan [Preservision Areds 2 Softgel] 1 cap PO DAILY [History] Aspirin 81 mg PO DAILY #30 tab.chew 10/25/16 [Rx] Atorvastatin [Lipitor] 40 mg PO HS #30 tablet 10/25/16 [Rx] Allergies/Adverse Reactions: Allergies No Known Allergies Allergy (Verified 10/24/16 14:34) Procedures/tests Complete & Pending: Procedures Performed prior 72 hours Category Date Time Status CT cervical spine wo con [CT] Routine Cat Scan 10/25/16 09:50 Completed MR head/brain wo con [MR] Stat MRI 10/25/16 11:46 Draft ECG 12 lead ECG [ECG] AM 0600 Y 10/25/16 06:00 Ordered EV carotid duplex imaging BI Routine Y 10/25/16 00:00 Completed EV echocardiogram Routine Y 10/25/16 08:00 Completed Date of admission: 10/24/16 19:48 Primary care physician: Vickey Goodman Jr, MD Consults: 10/25/16 00:01 Consult to Insurance Account Representative [CONS] Routine Reason for SW Consult: Consider visual training aide 10/25/16 10:00 Consult to Neurology [CONS] Routine Consulting Provider: [facility] Reason for Consult: Transient Neurologic Symptoms waxing and waning over 3 day period. Worrisome for TIA. Please evaluate and advise. Call Completed: No Discharging clinician: Romero Irizarry Anticipated date of discharge: 10/25/16 - Patient Status Disposition: Home, Self-Care Condition: Fair Functional capacity at discharge: independent ambulation Overall status at discharge: patient is back to baseline - Discharge Instructions Instructions: Aspirin (By mouth), Atorvastatin (By mouth), Transient Ischemic Attack (DC) Follow Up With: Vickey Goodman Jr, MD [Primary Care Provider] - 10/30/16 9:15 am - Diet and Activity Activity: resume usual activities as tolerated Diet: advance to your usual diet Interval History: Ms. Crane is a 71 year old female with history of hypertension and cataracts presented to the ED yesterday for multiple complaints including lightheadedness , right arm weakness, dysarthria, visual disturbances. Patient was admitted from the ED for observation and Neurology consulted for dysarthria and possible TIA. These episodes have been on and off over the past several days. Her right arm weakness has been ongoing over the past several months, history of right wrist fracture a few years ago. Isolated strip of numbness along the radial aspect of her forearm. Denies any weakness in the hands. Patient is right-handed. She is most concerned about her episode of dysarthria that occurred on Sunday afternoon. She was speaking to her cousin on the phone when her words got jumbled. States "the words didn't sound like words when they came out." This was an isolated incident that lasted approximately 30 minutes. Denies any prodromal symptoms such as vision loss, headache, extremity weakness, facial numbness, syncope, chest pain. Her visual disturbance is described as spots, denies vision loss. She recently had cataracts surgery on the right eye 2 weeks ago, which is the affected eye. Denies any history of stroke, TIA, blood clots, arrhythmia, or cardiac disease. Reports had brain aneurysm and 7 years ago. she was admitted for possible TIA as she presented with 30 minutes duration of speech difficulty, with total resolution, consistent with diagnosis of TIA. neurology was consulted and [facility] underwent full TIA/stroke work up including MRI of brain, echo, carotid artery duplex which was unrmarkable and was started on aspirin 81mg daily and statin.. No history of atrial flutter or fibrillation. her symptoms have resolved and she is being dc in stable condition. Hospital course: Ms. Crane is a 71 year old female - Time Spent with Patient Total time spent providing and/or coordinating discharge services: - Constitutional Vitals: Temp Pulse Resp BP Pulse Ox 97.3 F L 67 17 158/78 91 L 10/25/16 11:54 10/25/16 11:54 10/25/16 11:54 10/25/16 11:54 10/25/16 11:54 General appearance: Present: A&O X 0, cooperative, pleasant, no acute distress, answers questions appropriately Exam: General appearance: Present: A&O X 0, cooperative, pleasant, no acute distress, answers questions appropriately - Head Head exam: Present: atraumatic, normal inspection, normocephalic - Eye Eye exam: Present: EOMI, sclera anicteric Pupils: Present: PERRL - Neck Neck exam general surgery: Present: full ROM, normal inspection, supple, trachea midline. Absent: nuchal rigidity, thyromegaly - Respiratory Respiratory exam: Present: CTAB. Absent: rhonchi, wheezes - Cardiovascular Cardiovascular exam: Present: RRR, +S1, +S2 - GI/Abdominal GI/Abdominal exam: Present: normal bowel sounds, soft. Absent: distended, tenderness - Extremities Exam Extremities exam: Present: full ROM, warm - Neurological Exam Neurological exam: Present: alert, CN II-XII intact, normal gait, oriented X3, reflexes normal, strengths equal and symetr throughout - Psychiatric Psychiatric exam: Present: depressed - VTE Documentation of Mechanical Device: Intermittent pneumatic compression device
--- NOTE | 2016-10-26 18:32 | Carotid Imaging Report ---
Carotid Duplex Patient Name:Mark Crane Order Number:[id number] Procedure Date:10/25/2016 Date:1945ge:71 yrs Gender:Female Lt BP:139 / 76 mmHg Rt.BP:130 / 72 mmHgHeart Rate: Location:[facility] Room #: 3B21 Clothing Manager:Cherry Morales RDCS, RVT Referring MD:Christine Skinner DO history faculty member:Vickey Goodman MD Reading MD:Fer Crowe MD Primary Indications:Transient Neurologic Symptoms Risk Factors Yes/No Hypertension Yes Diabetes No Hypercholesterolemia No Hx of TIA No Hx of CVA No Impressions: The bilateral carotid arteries have minimal plaque throughout. Recommendations: After imaging the patient returned to their room. Test completed on 10/25/2016 at 11:31:19 am. Findings Carotid Duplex: Right: There is nonstenotic plaque in the right bifurcation. There is irregular, heterogeneous calcified plaque. There is nonstenotic plaque in the right proximal internal carotid artery. There is irregular, heterogeneous calcified plaque. Left: There is nonstenotic plaque in the left eca. There is smooth heterogeneous plaque. There is antegrade spectral Doppler flow patterns in the left vertebral artery. Prior Study: No prior study available for comparison. Carotid Results Right PSV EDV Assessment Proximal CCA 93 18 Normal Mid CCA 59 17 Normal Distal CCA 68 12 Normal Bifurcation 64 16 Non Stenotic Plaque Proximal ICA 31 9 Non Stenotic Plaque Mid ICA 42 14 Normal Distal ICA 56 18 Normal ECA 77 8 Normal Vertebral Artery 73 23 Antegrade Flow Left PSV EDV Assessment Proximal CCA 95 17 Normal Mid CCA 79 13 Normal Distal CCA 70 20 Normal Bifurcation 71 21 Normal Proximal ICA 64 18 Normal Mid ICA 68 22 Normal Distal ICA 89 35 Normal ECA 72 10 Non Stenotic Plaque Vertebral Artery 52 17 Antegrade Flow Ratio's Right ICA/CCA Ratio: 0.95 ICA/CCA Values: 56/59 Left ICA/CCA Ratio: 1.13 ICA/CCA Values: 89/79 Updated by Fer Crowe MD on 10/26/2016 6:27:35 PM electronically signed on 10/26/2016 6:27:55 PM with status of Final
== END 2016-10-25 16:23 | disposition home or self-care (01) ==
LOC: EMEROO 13:59 → 3BNU 13:59
PROVIDERS: ADMIT Internal Medicine; ATTEND Nurse Practitioner Family